=== PATIENT | male | born 1960 | race Caucasian/White ===

== ENCOUNTER 2018-10-26 09:00 | Day surgery (SDC) | payer OTHER ==
[~2018-10-26] VITALS: Ht 170.2 cm; Wt 86.2 kg
[~2018-10-26 09:00] MED LIST: AMLO5TAB1 PO; Ciprofloxacin Hydrochloride PO; GLIP10TE PO; LISI-420 PO; METF500T PO; METR250T2 PO
[2018-10-26] MEDS ORDERED: CEFAZOLIN SODIUM 1 GM/D5W PM 50 ML IV SCH (09:30)
[2018-10-26] MEDS ORDERED: FURO-570 PO (10:26)
[2018-10-26] MEDS ORDERED: HUM SUBQ (10:26)
[2018-10-26] MEDS ORDERED: ATEN50TA2 PO (10:26)
[2018-10-26] MEDS ORDERED: LEVO0.0216 PO (10:26)
[2018-10-26] MEDS ORDERED: BUPIVACAINE-MPF 0.25% 30 ML VIAL INJ ONE (11:57)
[2018-10-26] MEDS ORDERED: fentaNYL 0.05 MG/ML VIAL ONE (12:13)
[2018-10-26] MEDS ORDERED: MIDAZOLAM 2 MG/2 ML VIAL ONE (12:13)
[2018-10-26] MEDS ORDERED: NACL 0.9% 1,000 ML IV SCH (12:30)
[2018-10-26] MEDS ORDERED: MEPERIDINE 25 MG/ML SYR IVP PRN (12:30)
[2018-10-26] MEDS ORDERED: HYDROmorphone 1 MG/ML AMP IVP PRN ×3 (12:30→13:20)
[2018-10-26] MEDS ORDERED: diphenhydrAMINE 50 MG/ML VIAL IVP PRN (12:30)
[2018-10-26] MEDS ORDERED: ONDANSETRON 4 MG/2 ML VIAL IVP PRN (12:30)
[2018-10-26] MEDS ORDERED: DEXAMETHASONE 4 MG/ML VIAL ONE (13:04)
[2018-10-26] MEDS ORDERED: ONDANSETRON 4 MG/2 ML VIAL ONE (13:04)
[2018-10-26] MEDS ORDERED: SEVOFLURANE 250 ML BTL INH ONE (13:04)
[2018-10-26] MEDS ORDERED: KETOROLAC 30 MG/ML VIAL ONE (13:04)
[2018-10-26] MEDS ORDERED: PROPOFOL 200 MG/20 ML VIAL IV ONE (13:04)
[2018-10-26] MEDS ORDERED: MORPHINE SULFATE 2 MG/ML SYR IVP PRN ×2 (13:10→13:20)
[2018-10-26] MEDS ORDERED: MORPHINE SULFATE 4 MG/ML SYR IV PRN ×2 (13:10→13:20)
[2018-10-26] MEDS ORDERED: HYDROcodone/APAP 5/325 MG 1 TAB TAB PO PRN (13:20)
[2018-10-26] MEDS ORDERED: ONDANSETRON 4 MG/2 ML VIAL IV PRN (13:20)
== END 2018-10-26 14:30 | disposition home or self-care (01) ==
LOC: MDS 09:00 → MMU 09:01 → MDS 14:30
PROVIDERS: ATTEND Surgery
DX: M67.431 Ganglion, right wrist (principal); I13.10 Hypertensive heart and chronic kidney disease without heart failure, with stage 1 through stage 4 chronic kidney disease, or unspecified chronic kidney disease; E11.22 Type 2 diabetes mellitus with diabetic chronic kidney disease; N18.4 Chronic kidney disease, stage 4 (severe); E66.9 Obesity, unspecified; Z68.30 Body mass index [BMI] 30.0-30.9, adult; Z79.4 Long term (current) use of insulin; Z79.84 Long term (current) use of oral hypoglycemic drugs; Z79.899 Other long term (current) drug therapy; Z87.440 Personal history of urinary (tract) infections; Z90.49 Acquired absence of other specified parts of digestive tract; Z98.890 Other specified postprocedural states; Z79.82 Long term (current) use of aspirin
CPT/HCPCS: 25111; 71045; 82948; 88304; 93005; J0690; J1100; J1885; J2250; J2405; J2704; J3010; J3490; J7030

== ENCOUNTER 2023-04-10 14:53 | Observation (INO) | payer OTHER ==
[~2023-04-10] VITALS: Ht 167.6 cm; Wt 78.9 kg
[~2023-04-10 14:53] MED LIST changes: +ATEN50TA2 PO; +FURO-570 PO; +HUM SUBQ; -LISI-420 PO; +LISI-487 PO; +METF-346 PO; -METF500T PO; +METR-520 PO; -METR250T2 PO; +[UNRECOGNIZED DRUG - CODE] PO
[2023-04-10 15:03] VITALS: BP 124/51; PULSE 74; RESP 20; TEMP 98.8; O2SAT 95
[2023-04-10 15:26] LABS: BASOPHILS # (AUTO) 0.1 K/uL (0.00-0.22); BASOPHILS % (AUTO) 0.6 % (0.0-2.0); EOSINOPHILS # (AUTO) 0.2 K/uL (0-0.4); EOSINOPHILS % (AUTO) 1.7 % (0.0-4.0); HEMATOCRIT 20.7 % (36-52); HEMOGLOBIN 7.1 g/dL (12.0-18.0); LYMPHOCYTES # (AUTO) 1.1 K/uL (2.0-11.5); LYMPHOCYTES % (AUTO) 10.3 % (20.5-51.1); MEAN CORPUSCULAR HEMOGLOBIN 32 pg (27-31); MEAN CORPUSCULAR HGB CONC 34 g/dL (33-37); MEAN CORPUSCULAR VOLUME 93.9 fL (80-94); MONOCYTES # (AUTO) 0.8 K/uL (0.8-1.0); NEUTROPHILS # (AUTO) 8.9 K/uL (1.8-7.7); NEUTROPHILS % (AUTO) 80.4 % (42.2-75.2); PLATELET COUNT (AUTO) 304 K/uL (140-450); RED CELL DISTRIBUTION WIDTH 14.4 % (11.6-13.7)
--- NOTE | 2023-04-10 15:31 | NUR ---
PT C/O DIARRHEA X5 DAYS, MISSED DIALYSIS D/T DIARRHEA.
[2023-04-10 15:51] LABS: ALBUMIN 2.7 g/dL (3.4-5.0); ANION GAP 15.6 (8-16); CARBON DIOXIDE 25.2 mmol/L (21-32); POTASSIUM 3.8 mmol/L (3.5-5.1); TOTAL BILIRUBIN 0.4 mg/dL (0.0-1.0)
[2023-04-10 16:15] LABS: CREATININE 8.9 mg/dL (0.6-1.3)
[2023-04-10] MEDS ORDERED: NACL 0.9% 1,000 ML IV ONE (16:20)
[2023-04-10] MEDS ORDERED: VANCOMYCIN 1,000 MG VIAL PO ONE (16:30)
[2023-04-10] MEDS ORDERED: metroNIDAZOLE 500 MG/NS PREMIX 100 ML IV ONE (16:30)
[2023-04-10] MEDS ORDERED: MORPHINE SULFATE 4 MG/ML SYR IVP ONE (16:30)
[2023-04-10] MEDS ORDERED: ACETAMINOPHEN 325 MG TAB PO PRN (17:35)
[2023-04-10] MEDS ORDERED: HYDROcodone/APAP 5/325 MG 1 TAB TAB PO PRN (17:35)
[2023-04-10] MEDS ORDERED: VANCOMYCIN 1,000 MG VIAL ONE (18:06)
--- NOTE | 2023-04-10 18:16 | NUR ---
Patient presented to the ER with C/O diarrhea, as a result was not able to attend his schedule HD treatment Thursday and Thursday. Patient is A/O X 4. Patient seen by the provider (RT) F/A #20G angio-cath was observed, blood collected and sent as per orders. Patient observed with (LT U/A AV fistula (+) bruit thrill. Patient medivated for C/O abdominal pain/discomfortg with (+) results (see eMAR). All ordered test completed. Patient is admitted to Telemetry with an assigned bed to be admitted by the oncoming shift. Patient is stable on the stretcher in the lowest position, wheels locked, call duncan within reach and awaiting transfer to his assigned bed.
[2023-04-10] MEDS ORDERED: VANCOMYCIN 500 MG VIAL PO ONE ×2 (18:20→18:30)
--- NOTE | 2023-04-10 19:30 | NUR ---
Patient awake and comfortable in bed. No signs of acute distress at this time. Side rails up and call light within reach.
[2023-04-10] MEDS: MORPHINE SULFATE 4 MG/ML SYR IVP PRN (20:28)
[2023-04-10] MEDS ORDERED: INSU-1163 SQ (20:47)
[2023-04-10] MEDS ORDERED: LISI-486 PO (20:47)
[2023-04-10] MEDS ORDERED: TRI48 PO (20:47)
[2023-04-10] MEDS ORDERED: EVOL140P3 SQ (20:47)
[2023-04-10] MEDS ORDERED: ASPI-1822 PO (20:47)
[2023-04-10] MEDS ORDERED: HYDR-1100 PO (20:47)
[2023-04-10] MEDS ORDERED: INSU300I2 SQ (20:47)
[2023-04-10] MEDS: ONDANSETRON 4 MG/2 ML VIAL IVP PRN (21:49)
--- NOTE | 2023-04-10 23:10 | NUR ---
Patient will be admitted to care of Dr. Mckeon. Admited to Telemetry. Will go to room 113. Belongings list completed. Report to Jagdeep MONTESINOS.
[2023-04-10 23:25] VITALS: PULSE 90
[2023-04-10 23:35] VITALS: PULSE 75; RESP 20; O2SAT 96
--- NOTE | 2023-04-10 23:35 | NUR ---
Admitted from , with chief complaint of NAUSEA, ABDOMINAL PAIN, DIARRHEA , 62 y/o ,Male, Cooperative, awake, alert and oriented x 4. on 2l o2 via nc. o2 sat at 95%. oriented to call light, bed, phone,television, bathroom, smoking policy, visiting hours, procedures, ID bracelet on. Belongings list checked.all precautions in place. call light within reach. will continue to monitor.
[2023-04-10] MEDS ORDERED: hydrALAZINE 20 MG/ML VIAL IVP PRN (23:45)
[2023-04-11] VITALS: PULSE 90
[2023-04-11] MEDS ORDERED: NIFEdipine 60 MG TABER PO SCH (00:15)
--- NOTE | 2023-04-11 00:30 | NUR ---
stool sample sent to lab
--- NOTE | 2023-04-11 03:55 | NUR ---
PT ASLEEP. NO S/SX OF DISTRESS. VITAL SIGNS STABLE. ALL PRECAUTIONS IN PLACE. CALL LIGHT WITHIN REACH. WILL CONTINUE TO MONITOR.
[2023-04-11 04:00] VITALS: BP 129/59; PULSE 72; PULSE 75; RESP 18; TEMP 97.3; O2SAT 96
--- NOTE | 2023-04-11 07:01 | NUR ---
PT IS STABLE. NO ACUTE EVENTS THROUGHOUT THE NIGHT. ALL NEEDS MET.NO S/SX OF DISTRESS. NO COMPLAINS OF PAIN AT THIS MOMENT. ALL PRECAUTIONS IN PLACE. CALL LIGHT WITHIN REACH. WILL ENDORSE TO DAY SHIFT NURSE.
--- NOTE | 2023-04-11 07:10 | NUR ---
RECEIVED REPORT FROM HAND FORMER HELPER NURSE FOR CONTINUITY OF CARE. PT STABLE AT THIS TIME.
[2023-04-11 08:00] VITALS: BP 133/43; PULSE 77; PULSE 82; RESP 16; TEMP 97.3; O2SAT 96; O2SAT 98
[2023-04-11] MEDS: NIFEdipine 60 MG TABER PO SCH (08:32)
[2023-04-11] MEDS: ONDANSETRON 4 MG/2 ML VIAL IVP PRN (08:33)
[2023-04-11] MEDS: MORPHINE SULFATE 4 MG/ML SYR IVP PRN (08:33)
[2023-04-11] MEDS ORDERED: IMO2 PO (11:28)
[2023-04-11 12:00] VITALS: BP 109/38; PULSE 74; PULSE 76; RESP 16; TEMP 97.8; O2SAT 94
[2023-04-11 16:00] VITALS: BP 108/38; PULSE 70; PULSE 75; RESP 16; TEMP 98.5; O2SAT 96
[2023-04-11] MEDS: METOCLOPRAMIDE 10 MG TAB PO SCH (17:06)
--- NOTE | 2023-04-11 19:31 | NUR ---
ENDORSED PT TO BILINGUAL [employer]ER[employer] TEACHER NURSE FOR CONTINUITY OF CARE. PT STABLE AT THIS TIME.
[2023-04-11 20:00] VITALS: BP 121/48; PULSE 72; PULSE 77; PULSE 82; RESP 16; RESP 18; TEMP 98.5; O2SAT 96; O2SAT 97
[2023-04-12] VITALS: BP 118/50; PULSE 85; RESP 18; TEMP 98.2; O2SAT 97
[2023-04-12 04:00] VITALS: BP 127/42; PULSE 70; PULSE 75; RESP 18; TEMP 98; O2SAT 97
--- NOTE | 2023-04-12 06:22 | NUR ---
Received patient from previous shift, came in for c/o multiple times of diarrhea at home. Is alert and oriented x3, has dialysis yesterday evening, patient tolerated well took out 1.5 liter of fluid, also 1 unit prbc given during dialysis. Patient has left upper arm AV-fistula. Slept well through out the night, vital sign is stable and has no c/o. rule out c-diff still pending results. Addendum: 04/12/23 at 0632 by Agency 02 JAGUAR MONTESINOS Patient also has a run of [employer], notified dr. Mckeon via text message, no new order received.
[2023-04-12 06:48] LABS: BASOPHILS # (AUTO) 0.1 K/uL (0.00-0.22); BASOPHILS % (AUTO) 0.8 % (0.0-2.0); EOSINOPHILS # (AUTO) 0.3 K/uL (0-0.4); EOSINOPHILS % (AUTO) 2.7 % (0.0-4.0); HEMATOCRIT 24.9 % (36-52); HEMOGLOBIN 8.5 g/dL (12.0-18.0); LYMPHOCYTES # (AUTO) 1.1 K/uL (2.0-11.5); MEAN CORPUSCULAR HEMOGLOBIN 32 pg (27-31); MEAN CORPUSCULAR HGB CONC 34 g/dL (33-37); MONOCYTES # (AUTO) 0.8 K/uL (0.8-1.0); MONOCYTES % (AUTO) 8.7 % (1.7-9.3); NEUTROPHILS # (AUTO) 7.2 K/uL (1.8-7.7); NEUTROPHILS % (AUTO) 75.8 % (42.2-75.2); PLATELET COUNT (AUTO) 359 K/uL (140-450); RED BLOOD CELL COUNT(AUTO) 2.65 MIL/uL (4.20-6.10); RED CELL DISTRIBUTION WIDTH 14.9 % (11.6-13.7); WHITE BLOOD COUNT (AUTO) 9.4 K/uL (4.8-10.8)
[2023-04-12 06:56] LABS: ALBUMIN 2.5 g/dL (3.4-5.0); ANION GAP 16.2 (8-16); CARBON DIOXIDE 27.5 mmol/L (21-32); POTASSIUM 3.7 mmol/L (3.5-5.1); TOTAL BILIRUBIN 0.5 mg/dL (0.0-1.0)
--- NOTE | 2023-04-12 07:10 | NUR ---
RECEIVED REPORT FROM BROOM MAN NURSE FOR CONTINUITY OF CARE. PT STABLE AT THIS TIME.
[2023-04-12 08:00] VITALS: BP 130/49; PULSE 112; PULSE 79; PULSE 86; PULSE 95; RESP 18; TEMP 97.8; O2SAT 93
[2023-04-12] MEDS: NIFEdipine 60 MG TABER PO SCH (09:17)
[2023-04-12] MEDS: METOCLOPRAMIDE 10 MG TAB PO SCH ×2 (09:17→11:55)
--- NOTE | 2023-04-12 11:22 | NUR ---
PATIENT HAS BEEN SCREENED AND CATEGORIZED MODERATE NUTRITION RISK. PATIENT WILL BE SEEN WITHIN 3-5 DAYS OF ADMISSION. 04/10/23-04/15/[address]
[2023-04-12 12:00] VITALS: BP 125/55; PULSE 100; PULSE 80; RESP 20; TEMP 98.3; O2SAT 92
[2023-04-12 14:31] VITALS: BP 125/55; PULSE 80; RESP 20; TEMP 98.3
[2023-04-14] MEDS ORDERED: EPOETIN ALFA-EPBX 4,000 UNITS/ML VIAL IV SCH (09:00)
== END 2023-04-12 15:20 | disposition home or self-care (01) ==
LOC: MED 14:53 → MTU 17:34
PROVIDERS: ADMIT Student in an Organized Health Care Education/Training Program; ATTEND Student in an Organized Health Care Education/Training Program
DX: I12.0 Hypertensive chronic kidney disease with stage 5 chronic kidney disease or end stage renal disease (principal); E11.22 Type 2 diabetes mellitus with diabetic chronic kidney disease; N18.6 End stage renal disease; D63.1 Anemia in chronic kidney disease; E78.5 Hyperlipidemia, unspecified; E87.1 Hypo-osmolality and hyponatremia; Z79.899 Other long term (current) drug therapy; Z99.2 Dependence on renal dialysis
CPT/HCPCS: 36415; 36430; 71045; 80053; 82948; 83540; 83690; 85025; 86886; 86900; 86901; 86920; 87040; 87070; 87081; 93005; 96365; 96375; 96376; 99285; G0378; J2270; J2405; J3370; J3490; J8597; P9016